=== PATIENT | female | born 1965 | race Caucasian/White ===

== ENCOUNTER 2019-11-07 17:12 | Emergency (ER) | payer OTHER ==
[~2019-11-07] VITALS: Ht 162.6 cm; Wt 90.9 kg
[2019-11-07] MEDS ORDERED: ACETAMINOPHEN 325 MG TAB PO ONE (17:45)
[2019-11-07] MEDS ORDERED: ADVI200T PO (18:05)
[2019-11-07] MEDS ORDERED: MECL-58 (18:05)
[2019-11-07 18:15] LABS: BASO % 0.5 % (0.0-1.0); EOS # 0.2 10^3/uL (0.0-0.5); EOS % 3.2 % (0.0-3.0); HEMATOCRIT 42.6 % (36.0-47.0); HEMOGLOBIN 13.4 g/dl (12.0-15.5); LYMPH # 2.4 10^3/uL (1.5-5.0); LYMPH % 42.5 % (24.0-44.0); MEAN CORPUSCULAR HEMOGLOBIN 25.2 pg (27.0-33.0); MEAN CORPUSCULAR HGB CONC 31.5 g/dl (32.0-36.5); MEAN CORPUSCULAR VOLUME 80.1 fl (80.0-96.0); MONO # 0.5 10^3/uL (0.0-0.8); MONO % 8.2 % (0.0-5.0); NEUTROPHILS # 2.5 10^3/uL (1.5-8.5); NEUTROPHILS % 45.2 % (36.0-66.0); PLATELET COUNT, AUTOMATED 294 10^3/uL (150-450); RED BLOOD COUNT 5.32 10^6/uL (4.00-5.40); WHITE BLOOD COUNT 5.6 10^3/uL (4.0-10.0)
[2019-11-07 18:45] VITALS: BP 138/81
[2019-11-07 18:54] LABS: ALT/SGPT 37 U/L (12-78); BILIRUBIN,DIRECT < 0.1 MG/DL (0.0-0.2); BILIRUBIN,TOTAL 0.2 MG/DL (0.2-1.0); BLOOD UREA NITROGEN 20 MG/DL (7-18); CALCIUM LEVEL 9.2 MG/DL (8.5-10.1); CARBON DIOXIDE LEVEL 27 MEQ/L (21-32); CHLORIDE LEVEL 108 MEQ/L (98-107); CK-MB VALUE MASS < 1.0 NG/ML (<3.6); CPK CREATINE PHOSPHOKINASE 74 U/L (26-192); CREATININE FOR GFR 0.83 MG/DL (0.55-1.30); GLOMERULAR FILTRATION RATE > 60.0 (>51); GLUCOSE, FASTING 82 MG/DL (70-100); MB/CK RELATIVE INDEX 1.35 (< OR =4); POTASSIUM SERUM 3.9 MEQ/L (3.5-5.1); SODIUM LEVEL 142 MEQ/L (136-145); TOTAL PROTEIN 7.8 GM/DL (6.4-8.2); TROPONIN I < 0.02 NG/ML (< 0.10)
[2019-11-07] MEDS ORDERED: FLON1SPR NARES ×2 (19:24→19:38)
[2019-11-07] MEDS ORDERED: AUGM875T28 PO ×2 (19:24→19:38)
[2019-11-07] MEDS ORDERED: VENTAER INH ×2 (19:24→19:38)
[2019-11-07] MEDS ORDERED: AUGMENTIN 875 MG TAB PO ONE (19:30)
--- NOTE | 2019-11-07 21:04 | ECGEPIP ---
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
--- NOTE | 2019-11-08 08:00 | REP ---
CHEST, SINGLE VIEW: No comparison. Single view of the chest is performed. There is mild cardiomegaly. There is mild fibroatelectatic change in each lung base. No consolidating infiltrate is seen. There is mild tortuosity of the thoracic aorta. IMPRESSION: Mild cardiomegaly. Mild Bibasilar fibroatelectatic change without evidence of acute infiltrate. Electronically Signed by Oren De Santiago MD 11/08/2019 01:21 P
--- NOTE | 2019-11-08 09:11 | REP ---
CT brain without contrast: Repeat dictation. History: Headache. Preliminary report is provided at the time of examination by Justine hayward. 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 The maxilla is edentulous. Bony calvarium is intact. There is mucosal thickening and a small quantity of fluid in the left side of the sphenoid sinus. Otherwise, visualized paranasal sinuses are clear. Vascular calcification is noted in the distal internal carotid arteries. No intraorbital abnormality is seen. On soft-tissue window settings, the lateral, third, fourth ventricles are normal in size and position. De Santiago-white differentiation pattern is normal above below the tentorium. There is no evidence of intracranial hemorrhage. No mass, infarct, extra-axial fluid collection, or midline shift is seen. Impression: Mucosal thickening and a small quantity of fluid in the sphenoid sinus. Mild vascular calcification. Otherwise negative. Electronically Signed by Prosper Armstrong MD 11/08/2019 09:01 A
== END 2019-11-07 19:41 | disposition home or self-care (01) ==
LOC: M ED 17:12
DX: J01.90 Acute sinusitis, unspecified (principal); G44.209 Tension-type headache, unspecified, not intractable; I51.7 Cardiomegaly; J98.11 Atelectasis; Z79.51 Long term (current) use of inhaled steroids; Z79.899 Other long term (current) drug therapy